=== PATIENT | male | born 1980 | race Caucasian/White ===

== ENCOUNTER → 2016-05-20 | Outpatient (CLI) | payer OTHER, SELFPAY ==
[~2016-05-20] MED LIST: CONRAY-43 43% 50ML VIAL (Q9960) As Ordered ONE
--- NOTE | 2016-05-20 09:41 | REP ---
Right shoulder MRI a right shoulder MRI arthrogram: There are no comparison studies. Right shoulder prior to the arthrogram: Says performed with T1 T2-weighted dialysis in sagittal, axial and coronal projections. The acromioclavicular joint is unremarkable. There is a tiny volume of fluid in the subacromial bursa compatible with bursitis. There is a cyst in the muscle belly of the supraspinatus tendon measuring 2.8 cm along the length of the muscle belly and 0.9 cm transversely, likely an intramuscular ganglion. There is a tiny focus of T2 signal of the extreme distal tip of the supraspinatus tendon at its insertion, compatible with a partial thickness tear along the articular surface of the tendon. There is no tendon retraction. There is no displacement of the biceps long head tendon. No unusual marrow signal. MRI arthrogram: Additional imaging is performed after intra-articular injection of gadolinium diluted of sterile saline in sagittal, axial and coronal projections. An additional sequences performed with the upper extremity and abduction and external rotation. The cyst in the belly of the supraspinatus muscle is again noted, likely a ganglion. I suspect a tiny partial thickness tear the distal tip of the supraspinatus tendon at its insertion. There is a small focus of surface irregularity along the articular surface of the superior glenoid labrum at approximately 1 o'clock compatible with fraying. The glenoid labrum is otherwise unremarkable. The inferior glenohumeral recesses unremarkable. Impression: Cyst within the muscle belly of the supraspinatus, likely a ganglion. Tiny partial-thickness tear at the distal insertion of the supraspinatus tendon. Fraying of the superior glenoid labrum. Signed by Bernard Gutierrez MD 05/20/2016 09:32 A
--- NOTE | 2016-05-20 14:41 | REP ---
Procedure: Right shoulder arthrogram The procedure was performed under the direct supervision of Dr. Lagunas. History: Right shoulder pain The benefits and risks including but not limited to pain, infection, bleeding and anaphylaxis were explained to the patient and informed consent was obtained. Technique: The right glenohumeral joint space was localized using fluoroscopic guidance. The skin was prepped and draped in a sterile fashion. 1% lidocaine was used as a local anesthetic. Using fluoroscopic guidance a 22 gauge spinal needle was inserted and advanced into the joint. 0.5 ml of Conray 43 was injected to verify placement. 11 ml of a solution containing 20 ml of sterile saline and 0.15 ml of ProHance was injected into the joint. The needle was removed and the patient was taken to MRI for postprocedural imaging. The the patient tolerated the procedure well and there were no immediate complications. 1 second of fluoro time was utilized for this procedure. Reviewed by EMMIE Guajardo 05/20/2016 08:46 ASigned by Maxi Lagunas MD 05/20/2016 02:32 P
== END ==
LOC: M RADPRO 07:07
DX: M75.111 Incomplete rotator cuff tear or rupture of right shoulder, not specified as traumatic (principal)
CPT/HCPCS: 23350; 73223; 77002; A9576; Q9960